=== PATIENT | female | born 2000 | race Caucasian/White ===

== ENCOUNTER 2020-07-04 17:42 | Emergency (ER) | payer OTHER ==
[2020-07-04 18:06] VITALS: BP 113/76; PULSE 94; TEMP 98.3; BMI 23.3
[2020-07-04 19:43] LABS: EPI CELLS 11 /uL (0-25.1); HYALINE CASTS 1 /uL (0-3.1); PH,URINE 5.5 (5.0-8.0); URINE APPEARANCE CLEAR; URINE BACTERIA 236 /uL (0-1359); URINE BILIRUBIN NEGATIVE (NEGATIVE); URINE COLOR YELLOW; URINE GLUCOSE (UA) NEGATIVE (NEGATIVE); URINE KETONE TRACE (NEGATIVE); URINE LEUK ESTERASE NEGATIVE (NEGATIVE); URINE NITRITE NEGATIVE (NEGATIVE); URINE PROTEIN NEGATIVE (NEGATIVE); URINE RBC 16 /uL (0-23.9); URINE WBC 4 /uL (0-25.8)
[2020-07-04 21:18] LABS: BASO % 0.6 % (0-2.0); EOS % 3.2 % (0-4.5); HEMATOCRIT 36.4 % (32.4-45.2); HEMOGLOBIN 11.6 GM/dL (10.7-15.3); LYMPH % 27.7 % (8-40); MCH 23.8 pg (25.7-33.7); MCHC 31.8 g/dl (32.0-36.0); MEAN CELL VOLUME 74.7 fl (80-96); MEAN PLT VOLUME 9.6 fl (7.5-11.1); MONO % 6.5 % (3.8-10.2); RBC 4.87 M/mm3 (3.60-5.2); RDW 18.2 % (11.6-15.6); WHITE BLOOD COUNT 7.1 K/mm3 (4.0-10.0)
[2020-07-04 21:42] LABS: CALCIUM 9.4 mg/dL (8.5-10.1); PLATELET COUNT 203 K/MM3 (134-434); PLATELET ESTIMATE ADEQUATE
[2020-07-04 21:43] LABS: BLOOD UREA NITROGEN 6.2 mg/dL (7-18)
[2020-07-04 21:46] LABS: CREATININE 0.7 mg/dL (0.55-1.3)
[2020-07-04 21:47] LABS: BILIRUBIN,TOTAL 0.3 mg/dL (0.2-1); TOT PROT 7.8 g/dl (6.4-8.2)
== END 2020-07-04 22:14 | disposition home or self-care (01) ==
LOC: JER 17:42
DX: N94.6 Dysmenorrhea, unspecified (principal)
CPT/HCPCS: 36415; 76830-TC; 80053; 81003; 84702; 85025; 87086; 87491; 87591; 99284-25

== ENCOUNTER 2021-05-26 05:48 | Emergency (ER) | payer OTHER ==
[2021-05-26] MEDS ORDERED: IBUPROFEN 600 MG TABLET (FP) PO ONE (06:25)
[2021-05-26] MEDS ORDERED: LIDOCAINE 5% TOPICAL PATCH TP ONE (06:26)
[2021-05-26] MEDS ORDERED: ACETAMINOPHEN 500 MG TABLET (FP) PO ONE (06:31)
[2021-05-26 06:32] VITALS: BP 113/64; PULSE 98; TEMP 98.3; BMI 28.3
[2021-05-26] MEDS ORDERED: METHOCARBAMOL 500 MG TABLET PO ONE (06:34)
[2021-05-26] MEDS ORDERED: ACETAMINOPHEN 325 MG TABLET (FP) ONE (06:34)
[2021-05-26] MEDS ORDERED: LIDOCAINE 5% TOPICAL PATCH ONE (06:35)
[2021-05-26] MEDS ORDERED: METHOCARBAMOL 500 MG TABLET ONE (06:46)
[2021-05-26] MEDS ORDERED: LIDOCAINE PATCH REMOVAL MC SCH (22:00)
== END 2021-05-26 11:12 | disposition home or self-care (01) ==
LOC: JER 05:48
DX: R07.89 Other chest pain (principal); V49.50XA Passenger injured in collision with unspecified motor vehicles in traffic accident, initial encounter
CPT/HCPCS: 71046-TC-FY; 93005; 93010; 99284-25

== ENCOUNTER 2022-01-30 02:25 | Emergency (ER) | payer OTHER ==
[2022-01-30 02:50] VITALS: BP 103/69; PULSE 85; RESP 20; TEMP 99.2; BMI 27.3
== END 2022-01-30 05:41 | disposition left against medical advice (07) ==
LOC: JER 02:25
DX: R94.31 Abnormal electrocardiogram [ECG] [EKG] (principal)
CPT/HCPCS: 93005; 93010; 99283-25